=== PATIENT | male | born 1985 | race Caucasian/White ===

== ENCOUNTER 2024-10-21 19:15 | Emergency (ER) | payer BC ==
[2024-10-21 19:20] VITALS: RESP 18
[2024-10-21 19:43] LABS: Basophils # (A) 0.10 10*3/uL (0.00-0.10); Basophils % (A) 0.9 %; Eosinophils # (A) 0.58 10*3/uL (0.04-0.35); Eosinophils % (A) 5.4 %; HCT 42.5 % (39.6-50.0); HGB 15.2 g/dL (13.0-17.0); Lymphocytes # (A) 2.31 10*3/uL (0.90-5.00); Lymphocytes % (A) 21.4 %; MCH 32.3 pg (27.0-32.0); MCHC 35.8 g/dL (32.0-37.0); MCV 90.2 fL (80.0-97.0); Monocytes # (A) 0.78 10*3/uL (0.20-1.00); Monocytes % (A) 7.2 %; Neutrophils # (A) 7.02 10*3/uL (1.80-7.70); Neutrophils % (A) 64.9 %; Platelet Count 302 10*3/uL (140-440); RBC 4.71 10*6/uL (4.40-5.60); RDW 11.9 % (11.5-14.5); WBC 10.81 10*3/uL (4.50-10.00)
[2024-10-21 19:55] LABS: ALT 34 U/L (4-49); AST 30 U/L (17-59); African American GFR (CKD) >90 (>60 ml/min/1.73 sqM); Albumin 4.6 g/dL (3.5-5.0); Alkaline Phosphatase 52 U/L (38-126); Anion Gap 11 mmol/L; Blood Urea Nitrogen 18 mg/dL (9-20); Calcium 9.8 mg/dL (8.4-10.2); Carbon Dioxide 27 mmol/L (22-30); Chloride 102 mmol/L (98-107); Glucose 95 mg/dL (74-99); Magnesium 2.0 mg/dL (1.6-2.3); Non-African American GFR(CKD) >90 (>60 ml/min/1.73 sqM); Potassium 4.3 mmol/L (3.5-5.1); Sodium 140 mmol/L (137-145); Total Protein 7.5 g/dL (6.3-8.2)
[2024-10-21 20:03] LABS: INR 0.9 (<1.2); Partial Thromboplastin Time 26.4 sec (22.0-30.0); Prothrombin Time 9.9 sec (10.0-12.5)
--- NOTE | 2024-10-21 20:34 | XR ---
EXAMINATION TYPE: XR chest 2V DATE OF EXAM: 10/21/2024 7:46 PM COMPARISON: None CLINICAL INDICATION: Male, 38 years old with history of Chest Pain; [facility] TECHNIQUE: XR chest 2V Frontal and lateral views of the chest. FINDINGS: Lungs/Pleura: Subtle airspace opacities projecting the right lower lobe There is no evidence of pleur al effusion, focal consolidation, or pneumothorax. Pulmonary vascularity: Unremarkable. Heart/mediastinum: Cardiomediastinal silhouette is unremarkable. Musculoskeletal: No acute osseous pathology. IMPRESSION: Right lower lobe airspace opacities correlate for developing pneumonia [facility] Barron Mishra, , 10/21/2024 8:32 PM
--- NOTE | 2024-10-21 21:35 | ED ---
Chest Pain HPI - General Source: patient, RN notes reviewed Mode of arrival: ambulatory Limitations: no limitations <Terry Lewis - Last Filed: 10/21/24 21:35> - General Source: patient, RN notes reviewed, old records reviewed Mode of arrival: ambulatory Limitations: no limitations - History of Present Illness MD Complaint: chest pain -: days(s) Onset: during rest, during exertion Pain Location: right chest Pain Radiation: RUE, back Severity: moderate Severity scale (1-10): 7 Consistency: constant Improves With: nothing Worsens With: nothing Anginal Symptoms: dyspnea Other Symptoms: palpitations Treatments Prior to Arrival: none <Martell Burk - Last Filed: 10/22/24 01:04> - General Chief Complaint: Chest Pain Stated Complaint: Chest tightness,Sore throat Time Seen by Provider: 10/21/24 19:33 - History of Present Illness Initial Comments: Quick note: This is a 38-year-old smoker presenting for chest pain that started yesterday. Patient states he initially had right flank pain yesterday but developed into intermittent mid chest pressure today that worsens after eating. Patient endorses a "stuck" sensation in his throat/chest without associated burning, nausea/vomiting. Patient also endorses having a sore throat. Denies history of heart condition, hypertension, hyperlipidemia, diabetes. Endorses both mother and father having cardiac events in their 50s. Denies dyspnea, lightheadedness, dizziness, diaphoresis. (Terry Lewis) This is a 38-year-old male with sore throat chest pain chest pressure mostly noted today after eating feels like something was stuck while he was trying to eat and drink, no fevers mild cough no congestion no travels no sick contacts (Martell Burk) - Related Data Previous Rx's Medication Instructions Recorded Ibuprofen [Motrin] 600 mg PO Q6HR PRN #20 tab 11/17/15 Amoxic-Pot Clav 875-125Mg 1 tab PO Q12HR #20 tablet 10/21/24 [Augmentin 875-125] Allergies Allergy/AdvReac Type Severity Reaction Status Date / Time No Known Allergies Allergy Verified 10/21/24 19:19 Review of Systems ROS Other: All systems not noted in ROS Statement are negative. <Terry Lewis - Last Filed: 10/21/24 21:35> ROS Other: All systems not noted in ROS Statement are negative. <Martell Burk - Last Filed: 10/22/24 01:04> ROS Statement: Those systems with pertinent positive or pertinent negative responses have been documented in the HPI. Past Medical History Past Medical History: No Reported History History of Any Multi-Drug Resistant Organisms: None Reported Past Surgical History: No Surgical Hx Reported Past Psychological History: No Psychological Hx Reported Smoking Status: Vaper Past Alcohol Use History: Occasional Past Drug Use History: None Reported <Terry Lewis - Last Filed: 10/21/24 21:35> General Exam Limitations: no limitations <Terry Lewis - Last Filed: 10/21/24 21:35> General appearance: alert, in no apparent distress Head exam: Present: atraumatic, normocephalic, normal inspection Eye exam: Present: normal appearance, PERRL, EOMI. Absent: scleral icterus, conjunctival injection, periorbital swelling ENT exam: Present: normal exam, mucous membranes moist Neck exam: Present: normal inspection. Absent: tenderness, meningismus, lymphadenopathy Respiratory exam: Present: normal lung sounds bilaterally. Absent: respiratory distress, wheezes, rales, rhonchi, stridor Cardiovascular Exam: Present: regular rate, normal rhythm, normal heart sounds. Absent: systolic murmur, diastolic murmur, rubs, gallop, clicks GI/Abdominal exam: Present: soft, normal bowel sounds. Absent: distended, tenderness, guarding, rebound, rigid Extremities exam: Present: normal inspection, full ROM, normal capillary refill. Absent: tenderness, pedal edema, joint swelling, calf tenderness Back exam: Present: normal inspection Neurological exam: Present: alert, oriented X3, CN II-XII intact Psychiatric exam: Present: normal affect, normal mood Skin exam: Present: warm, dry, intact, normal color. Absent: rash <Martell Burk - Last Filed: 10/22/24 01:04> - General Exam Comments Initial Comments: Visual Physical Exam Vital signs reviewed General: Well-appearing, nontoxic, no acute distress. Head: Normocephalic, atraumatic Eyes: PERRLA, EOMI ENT: Airway patent Chest: Nonlabored breathing Skin: No visual rash, normal skin tone Neuro: Alert and oriented 3 Musculoskeletal: No gross abnormalities (Terry Lewis) Course <Martell Burk - Last Filed: 10/22/24 01:04> Vital Signs 10/21/24 10/21/24 19:18 22:59 Temperature 97.8 F 97.9 F Pulse Rate 87 71 Respiratory 18 18 Rate Blood Pressure 160/109 154/108 O2 Sat by Pulse 99 99 Oximetry - Reevaluation(s) Reevaluation #1: 10/22/24 01:03 Medical records reviewed (Martell Burk) Reevaluation #2: 10/22/24 01:03 The patient symptoms improved (Martell Burk) Reevaluation #3: 10/22/24 01:03 Patient informed of results and questions answered (Martell Burk) Reevaluation #4: Was pt. sent in by a medical professional or institution (, PA, INGOT HEADER, urgent care, hospital, or care home...) When possible be specific @ -no Did you speak to anyone other than the patient for history (EMS, parent, family, police, friend...)? What history was obtained from this source @ -no Did you review nursing and triage notes (agree or disagree)? Why? @ -agree Are old charts reviewed (outside hosp., previous admission, EMS record, old EKG, old radiological studies, urgent care reports/EKG's, care home records)? Report findings @ -yes Differential Diagnosis (chest pain, altered mental status, abdominal pain women, abdominal pain men, vaginal bleeding, weakness, fever, dyspnea, syncope, headache, dizziness, GI bleed, back pain, seizure, CVA, palpatations, mental health, musculoskeletal)? @ -prior EKG interpreted by me (3pts min.). @ -yes X-rays interpreted by me (1pt min.). @ -yes negative for acute disease CT interpreted by me (1pt min.). @ -no U/S interpreted by me (1pt. min.). @ -no What testing was considered but not performed or refused? (CT, X-rays, U/S, labs)? Why? @ -none What meds were considered but not given or refused? Why? @ -none Did you discuss the management of the patient with other professionals (professionals i.e. , PA, INGOT HEADER, lab, RT, psych nurse, social service technician, medical psychotherapist, teacher, project control officer, case management assistant)? Give summary @ -no Was smoking cessation discussed for >3mins.? @ -no Was critical care preformed (if so, how long)? @ -no Were there social determinants of health that impacted care today? How? (Homelessness, low income, unemployed, alcoholism, drug addiction, transportation, low edu. Level, literacy, decrease access to med. care, usp, rehab)? @ -none Was there de-escalation of care discussed even if they declined (Discuss DNR or withdrawal of care, Hospice)? DNR status @ -no What co-morbidities impacted this encounter? (DM, HTN, Smoking, COPD, CAD, Cancer, CVA, ARF, Chemo, Hep., AIDS, mental health diagnosis, sleep apnea, morbid obesity)? @ -none Was patient admitted / discharged? Hospital course, mention meds given and route, prescriptions, significant lab abnormalities, going to OR and other pertinent info. @ - Undiagnosed new problem with uncertain prognosis? @ -no Drug Therapy requiring intensive monitoring for toxicity (Heparin, Nitro, Insulin, Cardizem)? @ -no Were any procedures done? @ -no Diagnosis/symptom? @ - Acute, or Chronic, or Acute on Chronic? @ -Acute Uncomplicated (without systemic symptoms) or Complicated (systemic symptoms)? @ -Complicated Side effects of treatment? @ -no Exacerbation, Progression, or Severe Exacerbation? @ -exacerbation Poses a threat to life or bodily function? How? (Chest pain, [place], [place], pneumonia, PE, COPD, DKA, ARF, appy, cholecystitis, CVA, Diverticulitis, Homicidal, Suicidal, threat to staff... and all critical care pts) @ -yes (Martell uBrk) Reevaluation #5: Differential Chest Pain: Stable Angina, Unstable Angina, STEMI, NSTEMI Aortic Dissection, Pneumothorax, Musculoskeletal, Esophageal Spasm GERD, Cholecystitis, Pancreatitis, Zoster, this is not meant to be an all-inclusive list. (Martell Burk) Chest Pain MDM <Terry Lewis - Last Filed: 10/21/24 21:35> <Martell Burk - Last Filed: 10/22/24 01:04> - JUNIOR I completed the quick note portion of this chart signed FAYE Pinzon (Terry Lewis) 38 who presented to ER for chest patient with normal intake at home patient can be discharged home (Martell Burk) Disposition <Terry Lewis - Last Filed: 10/21/24 21:35> Is patient prescribed a controlled substance at d/c from ED?: No Time of Disposition: 22:40 <Martell Burk - Last Filed: 10/22/24 01:04> Clinical Impression: Acute pneumonia, Chest pain, Atypical chest pain Disposition: HOME SELF-CARE Condition: Good Prescriptions: Amoxic-Pot Clav 875-125Mg [Augmentin 875-125] 1 tab PO Q12HR #20 tablet Referrals: None,Stated [Primary Care Provider] - 1-2 days
[2024-10-21 23:00] VITALS: BP 154/108; PULSE 71; TEMP 97.9
[2024-10-21] MEDS: AMOXIC-POT CLAV 875-125MG 1 EACH TAB PO STA (23:02)
[2024-10-21] MEDS: cefTRIAXone IN SWFI 1,000 MG/10 ML SYRINGE IVP STA (23:03)
== END 2024-10-21 23:08 | disposition home or self-care (01) ==
LOC: EC 19:15
DX: R07.89 Other chest pain (principal); J18.9 Pneumonia, unspecified organism; F17.290 Nicotine dependence, other tobacco product, uncomplicated
CPT/HCPCS: 36415; 93005; 87651; 80053; 83735; 84484; 85025; 85610; 85730; 71046; 99285; 96374; J0696